=== PATIENT | male | born 1980 | race African-American/Black ===

== ENCOUNTER 2025-04-20 12:16 | Emergency (ER) | payer OTHER, SELFPAY ==
--- NOTE | ~2025-04-20 | XR_ITS ---
EXAM/ PROCEDURE: XR ankle RT min 3V, XR foot RT min 3V - 04/20/2025 14:10 CDT HISTORY: 44 years old Male with Swelling and bruising all over COMPARISON: None available TECHNIQUE: Four view(s) each FINDINGS/ IMPRESSION: There are no fractures or dislocations.Joint spaces are within normal limits. Diffuse soft tissue swe lling around the ankle without subjacent fracture. Reviewed, dictated and finalized at location A.
--- NOTE | ~2025-04-20 | US_ITS ---
US venous doppler RT - 04/20/2025 14:15 CDT History: 44 years old Male with right lower extremity pain and swelling. Real-time sonographic images of the right lower extremity venous system were obtained. Color Doppler sonography and spectral waveform analysis were performed. No prior studies for comparison. The right sapheno-femoral junctions are patent. The right common femoral, superficial femoral, popl iteal and posterior tibial veins are compressible and without evidence of echogenic thrombus. Impression: No evidence of deep venous thrombosis Reviewed, dictated and finalized at location A. Impression: No evidence of deep venous thrombosis
[2025-04-20 13:02] VITALS: BP 123/80; PULSE 89; RESP 16; TEMP 36.8; O2SAT 99
--- NOTE | 2025-04-20 13:17 | ED_ITS ---
HPI - Trauma General Chief Complaint: Extremity Injury, Lower <Lizzie Kingsley APRN - Last Filed: 04/20/25 13:22> Stated Complaint: r leg/ankle <Lizzie Kingsley APRN - Last Filed: 04/20/25 13:22> Time Seen by Provider: 04/20/25 13:15 <Lizzie Kingsley APRN - Last Filed: 04/20/25 13:22> Focused HPI: Patient is a 44-year-old male who presents to the ER with a right foot injury. He reports on April 16, 2025 he ?rolled my ankle and heard a pop.Patient reports he went in to an outside ER for evaluation but his x-ray was negative. On patient's discharge paperwork he was advised to follow-up with his primary care provider and remain nonweightbearing. Patient denies any medical history relevant to this ER visit. He endorses decreased range of motion in his toes and right ankle. Patient also endorses right calf pain. He denies any shortness of breath, recent fevers, or right knee pain. GENERAL: Well-appearing, well-nourished, and in no acute distress. HEAD: Normocephalic, atraumatic. CHEST: Clear to auscultation. ?No respiratory distress. HEART: Regular rate and rhythm.? NEURO: ?Alert and oriented x3. MUSC: + Arron's sign R leg Patient screened in triage and initial orders placed.? ?Additional care and disposition to be based upon?diagnostic testing and treatment. <Lizzie Kingsley APRN - Last Filed: 04/20/25 13:22> History of Present Illness HPI narrative: I agree with the above HPI <Reinaldo Angela MD - Last Filed: 04/20/25 18:15> Related Data Allergies/Adverse Reactions: Allergies Allergy/AdvReac Type Severity Reaction Status Date / Time No Known Allergies Allergy Verified 04/20/25 12:18 <Lizzie Kingsley APRN - Last Filed: 04/20/25 13:22> Review of Systems Review of Systems: All systems reviewed & are unremarkable except as noted in HPI and below <Reinaldo Angela MD - Last Filed: 04/20/25 18:15> Exam Narrative: APPEARANCE: Well appearing, no pain, no distress, well-nourished. HEAD: normocephalic, atraumatic. EYES: PERRLA/EOMI, conjunctivae clear. NOSE: Normal no drainage EARS:TMS clear with good light reflex. THROAT: Pharynx clear, no exudate. NECK: Supple. No adenopathy, no masses. RESPIRATORY: Airway patent, respirations nonlabored. Clear to auscultation bilaterally, no rales, rhonchi, wheezing. CARDIOVASCULAR: Regular rate and rhythm without murmurs rubs or gallops. ABDOMINAL: Soft, nontender, nondistended, normal bowel sounds MUSCULOSKELETAL: Bruising and ecchymosis to the right lower extremity, no proximal tib-fib tenderness NEURO: Alert. Cranial nerves II through XII intact. Good gait. Good coordination SKIN: Warm, dry. Normal Color <Reinaldo Angela MD - Last Filed: 04/20/25 18:15> Course Vital Signs Vital signs: Vital Signs Temperature 98.2 F 04/20/25 13:02 Pulse Rate 89 04/20/25 13:02 Respiratory Rate 16 04/20/25 13:02 Blood Pressure 123/80 04/20/25 13:02 Pulse Oximetry 99 04/20/25 13:02 Oxygen Delivery Room Air 04/20/25 13:02 Temperature 97.9 F 04/20/25 15:20 Pulse Rate 74 04/20/25 15:20 Respiratory Rate 16 04/20/25 15:20 Blood Pressure 136/80 04/20/25 15:20 Pulse Oximetry 100 04/20/25 15:20 Oxygen Delivery Room Air 04/20/25 15:20 <Lizzie Kingsley APRN - Last Filed: 04/20/25 13:22> Vital Signs Temperature 98.2 F 04/20/25 13:02 Pulse Rate 89 04/20/25 13:02 Respiratory Rate 16 04/20/25 13:02 Blood Pressure 123/80 04/20/25 13:02 Pulse Oximetry 99 04/20/25 13:02 Oxygen Delivery Room Air 04/20/25 13:02 Temperature 97.9 F 04/20/25 15:20 Pulse Rate 74 04/20/25 15:20 Respiratory Rate 16 04/20/25 15:20 Blood Pressure 136/80 04/20/25 15:20 Pulse Oximetry 100 04/20/25 15:20 Oxygen Delivery Room Air 04/20/25 15:20 <Reinaldo Angela MD - Last Filed: 04/20/25 18:15> MDM - Trauma MDM Narrative Medical decision making narrative: 44-year-old male presenting to the emergency department for evaluation for right ankle pain. Patient states the initial injury was on 04/12. Patient did have evaluation at outside hospital and was provided Aircast, crutches and narcotic pain medication. Patient states that [place] Patient states that he is going to have follow-up with a sports medicine physician closer to his home. Patient was upset that I was not prescribing narcotic pain medication for him and he stated that he would just go buy them illegally. Patient declined any referrals for local physicians since [place] is from [place]2 [place] away <Reinaldo Angela MD - Last Filed: 04/20/25 18:15> Differential Diagnosis Differential diagnosis: Likely fracture of pelvis (Ankle sprain, ankle fracture, proximal tib-fib fracture, DVT) <Reinaldo Angela MD - Last Filed: 04/20/25 18:15> Imaging Data Radiologist's impression: Impressions Venous Doppler Study 04/20/25 14:15 Impression: No evidence of deep venous thrombosis <Reinaldo Angela MD - Last Filed: 04/20/25 18:15> Discharge Plan Discharge Clinical Impression: Ankle sprain and strain <Lizzie Kingsley APRN - Last Filed: 04/20/25 13:22> Patient Disposition: Home <Lizzie Kingsley APRN - Last Filed: 04/20/25 13:22> Condition: Stable <Lizzie Kingsley APRN - Last Filed: 04/20/25 13:22> Instructions: Antibiotic Form, Ankle Sprain (DC), Crutch Instructions (ED) <Lizzie Kingsley APRN - Last Filed: 04/20/25 13:22> Additional Instructions: Yariel wrap for comfort. Tylenol and ibuprofen for comfort. [id number] on the ankle. Elevate and ice as directed. Continue to have close follow-up with your sports medicine physician. If you have any worsening symptoms or if you have any questions or concerns then please call or return to the emergency department. <Lizzie Kingsley APRN - Last Filed: 04/20/25 13:22> Patient Language: Persian <Lizzie Kingsley APRN - Last Filed: 04/20/25 13:22> Follow-up/Referrals: PHYSICIAN,DEICER FINISHER [Primary Care Provider] - <Lizzie Kingsley APRN - Last Filed: 04/20/25 13:22>
[2025-04-20 15:20] VITALS: BP 136/80; PULSE 74; RESP 16; TEMP 36.6; O2SAT 100
== END 2025-04-20 15:46 | disposition home or self-care (01) ==
LOC: ANHED 15:37
PROVIDERS: Emergency Provider Emergency Medicine
DX: S93.401A Sprain of unspecified ligament of right ankle, initial encounter (principal); S96.911A Strain of unspecified muscle and tendon at ankle and foot level, right foot, initial encounter; X50.9XXA Other and unspecified overexertion or strenuous movements or postures, initial encounter
CPT/HCPCS: 73610; 73630; 93971; 99284